=== PATIENT | female | born 1970 | race Caucasian/White ===

== ENCOUNTER → 2017-06-19 | Outpatient (CLI) | payer OTHER ==
[~2017-06-19] MED LIST: ACE3 PO; IBU800 PO; IRON1TAB55 PO; MET50 PO; MULT1CAP59 PO; OMEG500C7 PO
--- NOTE | 2017-06-20 08:27 | RADIOLOGY IMAGING REPORT ---
FACILITY: [facility] PATIENT NAME: FEMI DUTTON : [id number] MR: [id number] V: [id number] EXAM DATE: ORDERING PHYSICIAN: BAHMAN COREAS TECHNOLOGIST: Marisol Frias PROCEDURE:LEFT DIGITAL DIAGNOSTIC MAMMOGRAM WITH 3D BREAST TOMOSYNTHESIS. COMPARISON:Prior mammograms dated 06/11/17. INDICATIONS:FURTHER EVALUATION. FINDINGS: The patient returns for spot compression views in the left CC and MLO projections. The focal areas of increased density in the medial and inferior portion of the left breast appear fairly compressible and apparently represent summation shadows. There was no demonstration of malignant appearing mass or calcification in the left breast. DIAGNOSTIC CATEGORY 2--BENIGN FINDING. RECOMMENDATIONS: ROUTINE MAMMOGRAM AND CLINICAL EVALUATION. IMPRESSION: BI-RADS 2: No significant abnormality of the left breast is seen. Images were reviewed with R2CAD and 3D breast tomosynthesis. Dictated by: Shirley Castro M.D. on 06/19/2017 at 16:48 Transcribed by: ANGI on 06/19/2017 at 18:53 Approved by: Shirley Castro M.D. on 06/20/2017 at 8:25 [facility]
== END ==
LOC: MAMO 01:22
PROVIDERS: ATTEND Physician Assistant
DX: R92.2 Inconclusive mammogram (principal)
CPT/HCPCS: 77065

== ENCOUNTER → 2019-01-21 | Outpatient (CLI) | payer OTHER ==
[~2019-01-21] MED LIST changes: +MISO200T59 PV
--- NOTE | 2019-01-22 12:06 | RADIOLOGY IMAGING REPORT ---
FACILITY: [facility] [place] PATIENT NAME: FEMI DUTTON : [id number] MR: [id number] V: [id number] EXAM DATE: ORDERING PHYSICIAN: BAHMAN COREAS TECHNOLOGIST: Marisol Frias PROCEDURE: BILATERAL DIGITAL SCREENING MAMMOGRAM WITH CAD ASSISTED INTERPRETATION & 3D TOMOSYNTHESIS. REASON FOR STUDY: Screening. FAMILY HISTORY OF BREAST CANCER: None. BREAST PROCEDURES/TREATMENTS: None. COMPARISON: 06/19/17, 06/11/17, 05/30/16, 05/25/14, 03/30/12. VIEWS OBTAINED: Bilateral 2D & 3D full field CC & MLO projections. BREAST DENSITY: The breasts are heterogeneously dense which can obscure small masses. MAMMOGRAM FINDINGS: The parenchymal pattern has remained stable allowing for difference in mammographic technique & patient positioning. IMPRESSION: BIRADS 1: Negative. DIAGNOSTIC CATEGORY 1--NEGATIVE. RECOMMENDATIONS: ROUTINE MAMMOGRAM AND CLINICAL EVALUATION. Dictated by: Shirley Castro M.D. on 01/21/2019 at 16:28 Transcribed by: DAVID on 01/22/2019 at 10:04 Approved by: Shirley Castro M.D. on 01/22/2019 at 12:01 [facility]
== END ==
LOC: MAMO 07-14 01:01
PROVIDERS: ATTEND Physician Assistant
DX: Z12.31 Encounter for screening mammogram for malignant neoplasm of breast (principal)
CPT/HCPCS: 77063; 77067